=== PATIENT | female | born 1985 | race Two or more races ===

== ENCOUNTER → 2020-04-16 | Outpatient (CLI) | payer OTHER ==
--- NOTE | 2020-04-16 17:33 | RAD ---
ADDENDUM #1 Addendum: Pathology results indicate fibroadenoma showing focal moderate florid ductal epithelial hyperplasia. No atypia or evidence of malignancy. 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 Surgical consultation recommended. Electronically signed by: Hilario Yu MD (04/22/2020 10:48 AM) [id number] ORIGINAL REPORT Examination: 1. Ultrasound-guided left breast core needle biopsy 2. Left postprocedure mammogram. INDICATION: 34-year-old woman with a left breast mass requested for ultrasound-guided core needle bio psy. COMPARISON: Left breast ultrasound examinations of 02/22/2019, 08/28/2019, and 03/31/2020. Bilateral d igital diagnostic mammogram of 02/22/2019. TECHNIQUE AND FINDINGS: Using [place] hotel director services over the telephone, informed consent was obtained and an appropriate procedural pause observed. Using standard sterile technique, ultrasound guidance and local anesthesia, two 14-gauge core biopsy samples of the dominant mass at the left 3:00 position 1 cm from the nipple were obtained and placed in formalin. Sonographic survey of the mass in the left breast showed extensive extension of lobulate d masses. To the posterior aspect of the breast at the 2:00 position. Calcifications were seen at the posterior most margin of the sonographic masses. An S-shaped biopsy marker was deployed at the biopsy site and hemostasis ensured with direct breast c ompression for several minutes. Puncture site was dressed. A postprocedure mammogram was subsequently obtained. This showed heterogeneously dense breast parench yma with an increase in masslike nodularity since the last mammogram extending laterally in the upper outer quadrant left breast, associated with dystrophic calcifications. Calcifications in the posteri or upper outer left breast correlate with the sonographic calcifications identified during prebiopsy planning at this visit and can serve as anatomic landmarks of tumoral extent in the short-term. Patient tolerated the procedure without incident. Post procedure instructions were provided in writin g (Syriac-language) to the patient and she had an opportunity to ask questions about it via interpr eter services prior to her biopsy and subsequent discharge. There were no apparent complications. IMPRESSION: Ultrasound-guided left breast core needle biopsy of a large, lobulated mass with dystrophic calcifica tions extending from the subareolar breast to the upper outer left breast over an approximate 10 cm d istance, targeting the area of enlargement in the subareolar 3:00 position. Pathology results are pen ding. An addendum will be issued after pathology results become available. Electronically signed by: Hilario Yu MD (04/16/2020 5:31 PM) [id number]
--- NOTE | 2020-04-16 17:33 | RAD ---
ADDENDUM #1 Addendum: Pathology results indicate fibroadenoma showing focal moderate florid ductal epithelial hyperplasia. No atypia or evidence of malignancy. 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 Surgical consultation recommended. Electronically signed by: Hilario Yu MD (04/22/2020 10:48 AM) [id number] ORIGINAL REPORT Examination: 1. Ultrasound-guided left breast core needle biopsy 2. Left postprocedure mammogram. INDICATION: 34-year-old woman with a left breast mass requested for ultrasound-guided core needle bio psy. COMPARISON: Left breast ultrasound examinations of 02/22/2019, 08/28/2019, and 03/31/2020. Bilateral d igital diagnostic mammogram of 02/22/2019. TECHNIQUE AND FINDINGS: Using Thai english as a second language teacher services over the telephone, informed consent was obtained and an appropriate procedural pause observed. Using standard sterile technique, ultrasound guidance and local anesthesia, two 14-gauge core biopsy samples of the dominant mass at the left 3:00 position 1 cm from the nipple were obtained and placed in formalin. Sonographic survey of the mass in the left breast showed extensive extension of lobulate d masses. To the posterior aspect of the breast at the 2:00 position. Calcifications were seen at the posterior most margin of the sonographic masses. An S-shaped biopsy marker was deployed at the biopsy site and hemostasis ensured with direct breast c ompression for several minutes. Puncture site was dressed. A postprocedure mammogram was subsequently obtained. This showed heterogeneously dense breast parench yma with an increase in masslike nodularity since the last mammogram extending laterally in the upper outer quadrant left breast, associated with dystrophic calcifications. Calcifications in the posteri or upper outer left breast correlate with the sonographic calcifications identified during prebiopsy planning at this visit and can serve as anatomic landmarks of tumoral extent in the short-term. Patient tolerated the procedure without incident. Post procedure instructions were provided in writin g (Thai-language) to the patient and she had an opportunity to ask questions about it via interpr eter services prior to her biopsy and subsequent discharge. There were no apparent complications. IMPRESSION: Ultrasound-guided left breast core needle biopsy of a large, lobulated mass with dystrophic calcifica tions extending from the subareolar breast to the upper outer left breast over an approximate 10 cm d istance, targeting the area of enlargement in the subareolar 3:00 position. Pathology results are pen ding. An addendum will be issued after pathology results become available. Electronically signed by: Hilario Yu MD (04/16/2020 5:31 PM) [id number]
--- NOTE | 2020-04-18 09:01 | PATHOLOGY ---
[facility] Accession Number: [id number] . 01 Material submitted: . breast - LEFT BREAST TISSUE 3:00 ZCMFN. Modifiers: left . 01 Clinical history: . LEFT BREAST MASS 3:00 1CMFN . 02 Diagnosis: Breast tissue, left breast mass 3:00 needle biopsies: - Fibroadenoma, showing focal moderate/florid duct epithelial hyperplasia. (JPM:toby; 04/17/2020) QMS 04/17/2020 1346 Local . 02 Comment: There is no atypia or evidence of malignancy. (JPM:toby; 04/17/2020) . 02 Electronically signed: . Jonathan Castañeda MD, Pathologist NPI- [id number] . 01 Gross description: . The specimen is received in formalin, labeled "Andreia Andrew, left breast 3:00 1 cm from nipple". Received are two needle cores of fibrofatty tissue measuring 2.0 x 0.4 x 0.2 cm in aggregate dimensions. The specimen is submitted entirely in cassettes A1 and A2. The cold ischemic time is 1 minute. The total formalin fixation time is 10 hours and 25 minutes. (CAA; 04/16/2020) QAC/QAC 04/16/2020 1740 Local . 02 Pathologist provided ICD-10: D24.2, N62 . 02 CPT . 886907 Specimen Comment: A courtesy copy of this report has been sent to [phone], [phone] Specimen Comment: [id number] Specimen Comment: Report sent to / DR ALCARAZ Specimen Comment: A duplicate report has been generated due to demographic updates. Performed at: 01 [place] [id number] [facility] [address], [place], [place] [id number] MD Gustavo Barry MD Phone: [phone] Performed at: [address] [id number] MD Jonathan Castañeda MD Phone: [phone]
== END | disposition home or self-care (01) ==
LOC: US 10:53
PROVIDERS: ATTEND Physician Assistant Medical
DX: N63.21 Unspecified lump in the left breast, upper outer quadrant (principal); Z79.899 Other long term (current) drug therapy
CPT/HCPCS: 19083; 77065; 88305; C1713; 76942

== ENCOUNTER → 2020-06-12 | Outpatient (CLI) | payer OTHER ==
[~2020-06-12] MED LIST: EMPA10TA PO; IBUP-1060 PO; INSU100I32 SQ; METF10007 PO; OXYC-325 PO
== END ==
LOC: LAB 15:02
PROVIDERS: ATTEND Surgery
DX: Z01.812 Encounter for preprocedural laboratory examination (principal); N63.20 Unspecified lump in the left breast, unspecified quadrant; Z20.822 Contact with and (suspected) exposure to COVID-19
CPT/HCPCS: U0003

== ENCOUNTER 2020-06-16 10:18 | Day surgery (SDC) | payer OTHER ==
[~2020-06-16] VITALS: Ht 160 cm; Wt 76.0 kg
[~2020-06-16 10:18] MED LIST changes: +HYDROmorphone 2 MG/ML VIAL IVP PRN; +IV RINGERS,LACTATED 1000ML 1,000 ML IV SCH; +MORPHINE SULFATE 2 MG/ML VIAL. IVP PRN; -OXYC-325 PO; +PROCHLORPERAZINE 10 MG/2 ML VIAL. IVP PRN; +fentaNYL PF VIAL 100 MCG/2 ML VIAL IVP PRN
[2020-06-16] MEDS ORDERED: PROPOFOL 10 MG/ML (20ML) VIAL. IV ONE (10:26)
[2020-06-16] MEDS ORDERED: LIDOCAINE 2% PF 5 ML VIAL. ONE (10:26)
[2020-06-16] MEDS ORDERED: MIDAZOLAM HCL/PF 2 MG/2 ML VIAL. ONE (10:27)
[2020-06-16] MEDS ORDERED: fentaNYL PF VIAL 100 MCG/2 ML VIAL ONE (10:27)
[2020-06-16] MEDS ORDERED: INSULIN LISPRO 100 UNIT/ML 3ML VIAL for OP,RR ONLY. SQ PRN (11:15)
[2020-06-16] MEDS ORDERED: INSULIN LISPRO 100 UNIT/ML 3ML VIAL for OP,RR ONLY. SQ ONE (11:30)
[2020-06-16] MEDS ORDERED: BUPIVACAINE-EPI 0.5%-1:200000 MPF 30 ML VIAL. ONE (11:53)
[2020-06-16] MEDS ORDERED: DEXAMETHASONE SOD PHOS 4 MG/ML VIAL ONE (14:26)
[2020-06-16] MEDS ORDERED: ONDANSETRON PF 4 MG/2 ML VIAL. ONE (14:26)
[2020-06-16] MEDS ORDERED: SEVOFLURANE 61 TO 120 MINUTES. IH ONE (14:30)
--- NOTE | 2020-06-16 15:24 | PDOC4 ---
Operative Note Operative Note Operative Note: Preoperative Diagnosis: Left breast masses Postoperative Diagnosis: Same Procedure: Excision of left breast masses Surgeon: Del[place] Remote Sensing Research Scientist: Kristal THOMPSON Anesthesia: General EBL: 20 mL Specimen: Left breast masses to pathology Drains: None Complications: None Indication: The patient is a 34-year-old female who was referred due to left breast masses. There was a core needle biopsy of the dominant mass which described a fibroadenoma. There was concern however of this potentially representing a giant fibroadenoma and she was referred for surgical treatment. We recommend excision of the primary mass and potentially additional masses depending on intraoperative findings. The risks of surgery were discussed which include bleeding, infection, scar tissue, wound healing problems, altered appearance, anesthetic risk, potential need for additional surgery or procedure. She understands and would like to proceed. Description: The patient was taken to the operating room and placed supine in the operating table. General anesthesia was performed. The left breast was prepped with ChloraPrep and draped in a standard surgical manner. The dominant mass was located near the 2 o'clock position fairly close to the areola. A periareolar incision was made overlying this mass with a scalpel. Cautery dissection was carried down into the breast parenchyma. The mass was readily identified and mobilized from the surrounding tissues. Further palpation identified additional similar masses. The masses were firm and grayish in appearance. These abnormal masses were then fully excised and sent to pathology. Several small bleeding points were controlled with cautery. Hemostasis was then good. The subcutaneous tissues were approximated with 3-0 Vicryl. Skin was closed with 4-0 Monocryl. The incision was infiltrated with half percent Marcaine with epinephrine. A sterile dressing was then applied. The patient tolerated procedure well and was sent to the recovery room in stable condition. At the end the case all counts were correct. XI MCIKNNEY MD Jun 16, 2020 15:23
--- NOTE | 2020-06-16 15:26 | DISCH ---
DISCHARGE INSTRUCTIONS Condition on Discharge Condition on Discharge: Stable Activity After Discharge Activity Instructions for Disc: Activity as tolerated, Other, see below Diet after Discharge Diet after Discharge: Regular Wound Incision Care Wound/Incision Care: Other, see below (keep dressing clean and dry X 72 hours, may then remove and shower) Follow-Up Follow up with: Dr Mckinney in 1 week in office, call for appointment [phone] XI MCKINNEY MD Jun 16, 2020 15:26
[2020-06-16] MEDS ORDERED: OXYC-325 PO (15:54)
[2020-06-16] MEDS ORDERED: oxyCODONE/APAP 5/325 1 TAB TABLET PO ONE (16:00)
[2020-06-16] MEDS ORDERED: KETOROLAC 30 MG/ML VIAL. IVP ONE (16:00)
[2020-06-16 17:00] VITALS: BP 112/71
--- NOTE | 2020-06-24 16:58 | PATHOLOGY ---
[facility] Accession Number: [id number] . 01 Material submitted: . breast - LEFT BREAST MASS. Modifiers: left . 01 Clinical history: . PRE-OPERATIVE DIAGNOSIS: LEFT BREAST MASS OPERATIVE PROCEDURE: EXCISION OF LEFT BREAST MASS POST-OPERATIVE DIAGNOSIS: PENDING . 02 Diagnosis: Breast tissue, left breast mass excision: - Fibroadenomas, multiple. - Proliferative fibrocystic changes of surrounding breast tissue with the following components: - Florid ductal epithelial hyperplasia. - Stromal fibrosis. - Duct ectasia. - Cystic change. - Apocrine metaplasia. - Small radial sclerosing lesion showing focal florid ductal epithelial hyperplasia. LBQ 06/20/2020 1333 Local . 02 Comment: There is no atypia or evidence of malignancy. (JPM/db; 06/20/2020) . 02 Electronically signed: . Jonathan Castañeda MD, Pathologist NPI- [id number] . 01 Gross description: . The specimen is received in formalin, labeled "Andreia Almanzagiron, left breast mass". Received are three segments of white-valero, fibrous to bright yellow, lobulated tissue ranging in size from 1.5 x 1.3 x 0.8 to 9.5 x 4.4 x 3.0 cm in greatest dimensions. The specimen has an aggregate weight of 44 g. The surgical margins are inked. Sectioning through the smaller segment reveals white, fibrous cut surfaces with a small area of calcification measuring 0.4 cm. Sectioning through the second segment reveals a well-demarcated pale valero nodule measuring 1.6 x 1.4 x 1.2 cm in greatest dimension, which grossly abuts the inked margin. Sectioning through the larger segment reveals two well-demarcated pale valero nodules measuring 1.6 x 1.5 x 1.4 and 2.2 x 2.0 x 1.5 cm, both of which grossly abut the inked margin. The remainder of the third segment displays white, fibrous cut surfaces with a slight amount of bright yellow lobulated tissue identified. The specimen is submitted representatively as follows: . A1 smaller segment, bisected, submitted entirely A2-A5 entire nodule from second segment, quadrisected A6-A8 manufacturers service representative sections of smaller nodule from third segment A9-A12 manufacturers service representative sections of larger nodule from third segment A13-A14 manufacturers service representative sections of dense fibrous tissue from third segment. . The cold ischemic time is less than 1 minute. The total formalin fixation time is 54 hours and 50 minutes. (CAA; 06/18/2020) QAC/QAC 06/18/2020 1034 Local . 02 Pathologist provided ICD-10: N60.12, N60.32, N60.42, N60.82 . 02 CPT . 835991 Specimen Comment: A courtesy copy of this report has been sent to [phone] Specimen Comment: Report sent to Specimen Comment: A duplicate report has been generated due to demographic updates. Performed at: 01 [facility] [address] [facility] [address], [place], [place] [id number] MD Gustavo Barry MD Phone: [phone] Performed at: 02 [facility] [address] [place], [place] [id number] MD Jonathan Castañeda MD Phone: [phone]
== END 2020-06-16 17:32 | disposition home or self-care (01) ==
LOC: SURG 10:18
PROVIDERS: ATTEND Surgery
DX: N63.20 Unspecified lump in the left breast, unspecified quadrant (principal); D24.2 Benign neoplasm of left breast; N60.12 Diffuse cystic mastopathy of left breast; N60.42 Mammary duct ectasia of left breast; N60.82 Other benign mammary dysplasias of left breast; E11.9 Type 2 diabetes mellitus without complications; Z90.49 Acquired absence of other specified parts of digestive tract; Z98.890 Other specified postprocedural states; Z79.899 Other long term (current) drug therapy; Z79.84 Long term (current) use of oral hypoglycemic drugs
CPT/HCPCS: 19120; 81025; 82962; 88305; A6254; A6258; J0690; J1100; J1815; J1885; J2250; J2405; J2704; J3010